=== PATIENT | male | born 1980 | race Caucasian/White ===

== ENCOUNTER 2017-07-16 21:48 | Emergency (ER) | payer SELFPAY ==
[2017-07-16 22:16] VITALS: RESP 18
--- NOTE | 2017-07-16 22:51 | EDPHY ---
H & P Time Seen by Provider: 07/16/17 22:20 HPI/ROS: CHIEF COMPLAINT: Right knee pain and swelling History by patient HISTORY OF PRESENT ILLNESS: 37-year-old man presents with right knee pain since he fell when he tripped at work yesterday, greater than 24 hours ago. He did land directly on his knee. He was able to continue the work day and was able to walk around but then last night began to her more this morning when he woke up he was unable to bear weight. He denies any secondary trauma. He has noticed the swelling. He has taken ibuprofen without any relief. He has been icing it. He had crutches at home which he has been using since he has been unable to weight bear despite being able to walk on it yesterday. He has also noticed today that he has been unable to move his leg around without the assistance of his hands. REVIEW OF SYSTEMS: As in HPI, and all other systems reviewed and are negative Smoking Status: Heavy smoker Physical Exam: General Appearance: Alert and no distress. Morbidly obese Eyes: Pupils equal and round no injection. Musculoskeletal: Neck is supple and nontender. Extremities: Right knee positive large swelling and tenderness along the lateral joint line and patella tenderness. Positive swelling and deformity just proximal to the knee joint. Patient unable to extend the knee actively or hold it up with passive extension and pain with flexion. DP pulses 2+ intact. Distal sensation intact. Full range of motion of right ankle. No pain with hip rotation. Skin: No rashes or lesions except as described above. Constitutional: Initial Vital Signs Temperature (C) 37.2 C 07/16/17 22:05 Heart Rate 94 07/16/17 22:05 Respiratory Rate 18 07/16/17 22:05 Blood Pressure 135/89 H 07/16/17 22:05 O2 Sat (%) 92 07/16/17 22:05 O2 Delivery Mode Room Air Allergies/Adverse Reactions: No Known Allergies Allergy (Unverified 07/16/17 22:06) Home Medications: Medication Instructions Recorded Htn Meds 07/16/17 Hydrocodone/APAP 5/325 [[place] 1 - 2 tab PO Q4H PRN #10 tab 07/16/17 5/325 (*)] MDM/Departure - MDM Imaging Results: Imaging Impressions Knee X-Ray 07/16/17 22:12 Impression: 1. Large knee effusion and mild osteoarthritis. 2. No acute fracture. ED Course/Re-evaluation: 37-year-old man presents with right knee pain, swelling and inability to extend right knee concerning for quadriceps tendon rupture. X-ray showed no evidence of fracture. Patient was placed in a knee immobilizer and told to be nonweightbearing. He is referred for follow up with Orthopedics as soon as possible. We discussed home care including rest, ice and elevation on possible need for surgery depending on further evaluation. - Depart Disposition: Home, Routine, Self-Care Clinical Impression: Rupture, tendon, quadriceps Qualifiers: Encounter type: initial encounter Laterality: right Qualified Code(s): S76.111A - Strain of right quadriceps muscle, fascia and tendon, initial encounter Condition: Fair Instructions: Knee Immobilizer (ED) Additional Instructions: You were seen by Dr. Molly Leavitt today. X-rays did not show any broken bones today. You have a significant knee injury with possible quadriceps tendon rupture. Please wear the knee immobilizer and do not bear weight on your knee until you have been seen again by Orthopedics. Ice your knee every couple hours for 20 minutes at a time. Take ibuprofen 800 mg 3 times daily. He may take hydrocodone for breakthrough pain. Please call to make an appointment with Dr. Minaya, orthopedic surgeon, as soon as possible. Return for any worsening or new concerns. Prescriptions: Hydrocodone/APAP 5/325 [[place] 5/325 (*)] 1 - 2 tab PO Q4H PRN #10 tab PRN Reason: Pain, Moderate Referrals: NONE *PRIMARY CARE P,. [Primary Care Provider] - As per Instructions Perez Minaya MD [Medical Doctor] - As per Instructions
[2017-07-16] MEDS ORDERED: HYDROCOD/APAP 5/325 PREPACK#6 BTL TAKEHOME ONE (22:53)
[2017-07-16 23:11] VITALS: BP 129/83; PULSE 91; TEMP 98.8; O2SAT 91
== END 2017-07-16 23:10 | disposition home or self-care (01) ==
LOC: CED 21:48
DX: S76.111A Strain of right quadriceps muscle, fascia and tendon, initial encounter (principal); F17.200 Nicotine dependence, unspecified, uncomplicated; W01.198A Fall on same level from slipping, tripping and stumbling with subsequent striking against other object, initial encounter; Y92.69 Other specified industrial and construction area as the place of occurrence of the external cause; Y99.0 Civilian activity done for income or pay; Y93.89 Activity, other specified
CPT/HCPCS: 73564-PO; L1830